=== PATIENT | female | born 1950 | race Two or more races ===

== ENCOUNTER 2017-12-05 08:10 | Emergency (ER) | payer OTHER ==
[~2017-12-05] VITALS: Ht 165.1 cm; Wt 85.7 kg
[2017-12-05 08:17] VITALS: BP 166/83
[2017-12-05 09:00] LABS: Basophils # (auto) 0.1 uL; Basophils % (auto) 0.6 % (0.0-2.0); Eosinophils # (auto) 0.2 uL; Eosinophils % (auto) 1.2 % (0.0-7.0); Hematocrit 49.4 % (36.0-46.0); Lymphocytes # (auto) 2.4 uL; Lymphocytes % (auto) 13.8 % (10.0-50.0); Mean Corpuscular Hemoglobin 30.8 pg (28.0-32.0); Mean Corpuscular Hgb Conc. 34.3 g/dL (32.0-36.0); Mean Corpuscular Volume 89.6 fL (80.0-100.0); Monocytes # (auto) 0.7 uL; Monocytes % (auto) 4.3 % (0.0-12.0); Neutrophils # (auto) 13.9 uL; Neutrophils % (auto) 80.1 % (37.0-80.0); Platelet Count (auto) 256 10^3/uL (140-450); Red Blood Cells 5.52 10^6/uL (4.0-5.20); Red Cell Distribution Width 13.5 % (11.8-14.3); White Blood Cell 17.3 10^3/uL (4.4-10.8)
[2017-12-05 09:26] LABS: Alanine Aminotransferase 33 U/L (13-56); Albumin 3.5 g/dL (3.4-5.0); Anion Gap 9 (5-15); BUN/Creatinine Ratio 11.7; Blood Urea Nitrogen 14 mg/dL (7-18); Calcium 9.4 mg/dL (8.5-10.1); Carbon Dioxide 23 mmol/L (21-32); Chloride 105 mmol/L (98-107); GFR African American 58 mL/min; GFR Non-African American 48 mL/min; Glucose 126 mg/dL (74-106); Magnesium 2.1 mg/dL (1.6-2.6); Potassium 4.1 mmol/L (3.5-5.1); Sodium 137 mmol/L (136-145)
[2017-12-05 09:27] LABS: Urine Bacteria MOD /hpf (None Seen); Urine Blood 2+ /uL (Negative); Urine Specific Gravity 1.018 (1.001-1.035); Urine WBC 1888 /hpf (0 - 5); Urine WBC Clumps PRESENT /hpf (None Seen)
[2017-12-05 09:30] LABS: Alkaline Phosphatase 101 U/L (45-117); Bilirubin, Total 0.4 mg/dL (0.2-1.0); Total Protein 7.4 g/dL (6.4-8.2)
[2017-12-05 10:17] LABS: Aspartate Aminotransferase 24 U/L (15-37)
== END 2017-12-05 12:15 | disposition left against medical advice (07) ==
LOC: ER 08:10
DX: M54.9 Dorsalgia, unspecified (principal); R11.10 Vomiting, unspecified; R10.9 Unspecified abdominal pain; Z53.21 Procedure and treatment not carried out due to patient leaving prior to being seen by health care provider
CPT/HCPCS: 36415; 80053; 81001; 83735; 84484; 85025; 93005